=== PATIENT | female | born 1965 | race Caucasian/White ===

== ENCOUNTER 2023-05-02 06:05 | Day surgery (SDC) | payer OTHER, SELFPAY ==
[2023-05-02] VITALS (20 sets, daily range): BP systolic 130–166; BP diastolic 54–97; PULSE 63–87; RESP 12–16; TEMP 35.8–36.7; O2SAT 93–99; BMI 38.2
[2023-05-02] MEDS: LACTATED RINGERS 1000 ML 1,000 ML 100 ML IV ×2 (06:20→10:10)
--- NOTE | 2023-05-02 07:12 | P.ORPRC_ITS ---
Procedure Note Date of procedure: 05/02/23 Procedure: PREOPERATIVE DIAGNOSES: 1. Right shoulder rotator cuff tear. 2. Right long head biceps tendinosis 3. Right shoulder subacromial impingement syndrome. POSTOPERATIVE DIAGNOSES: 1. Right shoulder rotator cuff tear - supraspinatus 2. Partial-thickness tearing right long head biceps tendon 3. Right shoulder subacromial impingement syndrome. NAME OF OPERATION: 1. Right shoulder arthroscopic rotator cuff repair. 2. Right shoulder arthroscopic biceps tenodesis. 3. Right shoulder arthroscopic limited debridement. 4. Right shoulder shoulder arthroscopic bursectomy, subacromial decompression/partial acromioplasty. SURGEON: Igor Abbasi MD CLINICAL EDUCATION CONSULTANT: Arsh Funes. An marketing communications assistant was critical for this case to aide in patient positioning, suture manipulation, arm positioning, instrument positioning, and closure. ANESTHESIA: General plus preoperative supraclavicular block. IMPLANTS: Arthrex 4.75 mm knotless BioComposite Loop 'N' Tack tenodesis implant; Arthrex knotless 2.6 mm FiberTak anchors x2; Arthrex 4.75 mm BioComposite SwiveLock anchor COMPLICATIONS: None ESTIMATED BLOOD LOSS: 5 mL INDICATIONS: The patient is a pleasant, 58-year-old female who has experienced right shoulder pain that has been increasing in recent time. Physical exam and imaging were consistent with a rotator cuff tear and biceps tendinosis. Given these findings, and failure to improve with nonoperative management, recommendation was made for surgery. FINDINGS: Exam under anesthesia revealed stable shoulder with full range of motion. The diagnostic arthroscopy revealed grade 2 and grade 3 chondral changes of the glenoid with normal-appearing cartilage of the humeral head. There was significant partial-thickness tearing of the intra-articular portion of the long head of the biceps tendon. There was fraying of the superior labrum consistent with type 1 slap tear. There was partial-thickness articular sided tear of the anterior supraspinatus which involved 90% of the tendon thickness and measured approximately 1.5 cm in the anterior to posterior direction. The subscapularis tendon and infraspinatus tendons were intact. There was diffuse bursitis of the subacromial space with a downsloping acromion. No loose bodies were identified within the pouch or subscapularis recess. PROCEDURE: Following a thorough discussion of risks, benefits, and alternatives, consent was obtained and the operative shoulder was marked. A supraclavicular nerve block was performed by anesthesia staff in preop holding. The patient was brought to the operating room and placed supine on the operating table. Induction of anesthesia was completed, and patient was given IV Ancef preoperatively for prophylaxis. Patient was placed into the beach chair position. Head was placed in padded head tennis coach in neutral alignment, and all bony prominences were well padded. The operative shoulder and upper extremity were prepped and draped in the appropriate sterile fashion using ChloraPrep. A surgical time-out was performed confirming patient identity, surgical site, and procedure. The glenohumeral joint was injected with 40 mL of normal saline using and 18g spinal needle from a posterior approach. Anterior, posterior, lateral, and anterior superolateral portal sites were injected with 1% lidocaine with epinephrine. Posterior portal was established. Anterior portal was established after localization with a spinal needle and a 7.0 mm cannula was placed here. Diagnostic arthroscopy was then performed with findings as noted above. Attention was 1st directed to treatment of the biceps tendon tear. Shaver was utilized to debride frayed portions of the long head of the biceps tendon. After removing the frayed tissue remnant intra-articular biceps tendon had multiple longitudinal tears and decision was made to proceed with biceps tenodesis. Using the Gonzalez it suture Passer, FiberLink was passed around and through the intra-articular portion of the biceps tendon. Biceps tenotomy was then performed at its insertion to the superior labrum. To obtain better angle for placement of the SwiveLock anchor, a anterior superior lateral portal was established in the 7.0 cannula was placed here. Biceps tenodesis was then completed by securing a 4.75 mm BioComposite SwiveLock anchor at the top of the bicipital groove superior to the subscapularis insertion. Remnant suture was cut and removed. Attention was then directed the superior labrum. There was fraying consistent with type 1 slap tear. This frayed tissue was debrided using the motorized shaver. After debridement the labrum was probed and confirmed to be stable. Anterior posterior labrum were intact. The tear of the anterior supraspinatus was identified and frayed cuff tissue located this position was also debrided. The camera was then moved into the subacromial space. A lateral portal was established after localization of spinal needle. Subacromial bursectomy was performed using combination of motorized shaver and electrocautery. The undersurface acromion was cleared of soft tissue and subacromial decompression acromioplasty were performed using the bone-cutting shaver. This was 1st done with the bone cutter placed laterally was completed with a bone cutter placed posteriorly using the bone block cutting technique. Site was identified from the bursal side and was completed using the shaver. After releasing the small remnant attachment at the tear site, the tear measured approximately 1.5 cm anterior-posterior direction. A posterior superior lateral portal was then established to allow for better visualization of this anterior supraspinatus tear. Passport cannulas placed into the lateral portal. Footprint of the supraspinatus was then debrided of soft tissue and lightly decorticated using the bone-cutting shaver. Small stab incision was then placed lateral to the acromion to allow for placement of the anchors. A 2.65 mm knotless FiberTak anchor was placed into the anterior medial aspect of the exposed footprint. A 2nd knotless 2.6 mm FiberTak anchor was placed in the posterior medial aspect of the exposed footprint. A FiberLink suture was then used to pass each set of sutures through the cuff lateral to the musculotendinous junction. Medial row fixation was then performed using the knotless sutures. The lateral row repair was then performed by bringing both sets of FiberTape sutures into 1 4.75 mm SwiveLock anchor which was placed lateral to the footprint at the tear site. Sutures were tensioned and the SwiveLock was secured into position. The cuff was visualized and noted to be securely attached to its footprint site in anatomic position. The cuff was then probed and found to be stable. Remnant sutures were then cut and removed. Arthroscopic instruments and cannulas were removed. Excess fluid was drained from the subacromial space. Portal sites were then closed with 3-0 nylon simple interrupted sutures, and sterile dressings were applied. The patient was then rotated back into the supine position. She has woken from anesthesia and transferred to the PACU in stable condition. PLAN: 1. Discharged to home day of surgery. 2. Ice for pain and swelling. 3. Tylenol and oxycodone as needed for pain control. 4. Abduction sling at all times except for ROM and showering. -Remove sling several times daily for pendulum exercises, finger, wrist, and elbow range of motion. 5. Follow-up in orthopedic clinic in 10-14 days for wound check and suture removal. 6. Will initiate formal physical therapy 2 weeks postoperatively per the standard rotator cuff repair protocol.
--- NOTE | 2023-05-02 07:12 | W.PM.H&PU ---
History & Physical Update History & Physical Update H&P Reviewed and patient assessed: No changes noted
[2023-05-02] MEDS: fentaNYL 100 MCG/2 ML inj IVP (07:20)
[2023-05-02] MEDS: MIDAZOLAM HCL 1 MG/ML inj IVP (07:20)
[2023-05-02] MEDS: SODIUM CHLORIDE 0.9 % (FLUSH) 10 ML SYRINGE IVF (07:29)
--- NOTE | 2023-05-02 07:33 | SUR.PREOP ---
TIME?OUT:?0719 PT/RN/MDA?VERIFICATION?OF?SURGICAL?SITE,?PROCEDURE,?AND?CONSENT OBTAINED?PRIOR?TO?INVASIVE?PROCEDURE.
[2023-05-02] MEDS: CEFAZOLIN 2 GM INJ IVP (07:50)
[2023-05-02] MEDS: EPINEPHrine 1 MG in SODIUM CHLORIDE IRRIG SOLUTION 3,000 ML 9003 MG IRRIGATION ×8 (10:30)
--- NOTE | 2023-05-02 10:51 | W.ANESCHARGE ---
Anesthesia Charges Start Date/Time Anesthesia Start Date: 05/02/23 Anesthesia Start Time: 07:32 Stop Date/Time Anesthesia Stop Date: 05/02/23 Anesthesia Stop Time: 10:42
--- NOTE | 2023-05-02 10:51 | W.PM.NB ---
Nerve Block Nerve Block Time Seen by Provider: 07:25 Date Seen: 05/02/23 Type of block requested by surgeon for post-operative analgesia: supraclavicular Side: right Time out performed: Yes Verification of patient name: Yes Verification of date of : Yes Site marking: site marked Name of person performing procedure: Unruly Continuous monitoring Was continuous monitoring of O2 sat, B/P, program director/music director, recorded every 15 minutes?: Yes Procedure Checklist: sterile prep, needles and gloves Ultrasound guided. Images saved: Yes Medications given in 5ml increments after negative aspiration: Ropivicaine %: 0.5 mL: 20 Needle gauge: 22 Decadron (mg): 10 Precedex (mcg): 25 Patient tolerated procedure well: Yes Block Charges Block Charge (with Pro Fee): Brachial Plexus Use of Ultrasound Machine for Block: Yes- US Guidance/pain block
--- NOTE | 2023-05-02 10:54 | W.ANESCHARGE ---
Anesthesia Charges Start Date/Time Anesthesia Start Date: 05/02/23 Anesthesia Start Time: 07:32 Stop Date/Time Anesthesia Stop Date: 05/02/23 Anesthesia Stop Time: 10:42
[2023-05-02] MEDS: MEPERIDINE 25 MG/ML INJ 12.5 MG IVP (11:00)
[2023-05-02] MEDS: ONDANSETRON 2 MG/ML inj 4 MG IVP (12:48)
== END 2023-05-02 13:57 | disposition home or self-care (01) ==
PROVIDERS: Visit Provider Orthopaedic Surgery
PROC: (CPT 29805; principal; 2023-05-02 07:30)
DX: M75.101 Unspecified rotator cuff tear or rupture of right shoulder, not specified as traumatic (principal); M75.21 Bicipital tendinitis, right shoulder; M75.41 Impingement syndrome of right shoulder; G89.18 Other acute postprocedural pain; E11.9 Type 2 diabetes mellitus without complications; G47.30 Sleep apnea, unspecified
CPT/HCPCS: 29827; 29828; 29826; 29822; 01630; 64415; 76942; 82962; C1713; J0171; J0330; J0690; J1100; J1170; J2175; J2250; J2405; J2704; J2795; J3010; J7120; L3670

== ENCOUNTER 2023-08-13 14:45 | Outpatient (RCR) | payer OTHER, SELFPAY | END 2023-09-19 14:32 | disposition home or self-care (01) | PROVIDERS: Visit Provider Orthopaedic Surgery | DX: M75.121 Complete rotator cuff tear or rupture of right shoulder, not specified as traumatic (principal); S46.219A Strain of muscle, fascia and tendon of other parts of biceps, unspecified arm, initial encounter; Z51.89 Encounter for other specified aftercare; T14.8XXA Other injury of unspecified body region, initial encounter | CPT/HCPCS: 97110; 97140; 97162 ==

== ENCOUNTER 2024-01-22 15:12 | Outpatient (CLI) | payer OTHER, SELFPAY ==
--- NOTE | 2024-01-22 15:30 | MR_ITS ---
[address] [address] Phone:?[phone] Fax:?[phone] Referring Physician Information: Hayley Adams [address] [facility] [address] Phone:?[phone] Fax:?[phone] Patient:Shivani Pierre D.O.B:?1965 Sex:?Female Phone:?[phone] [facility] MRN:?[id number] Exam Date:?01/22/2024 EXAM: MRI of the LEFT KNEE, without contrast CLINICAL HISTORY: Ongoing left knee pain. Evaluate for medial meniscal root tear. COMPARISONS: Plain radiographs 01/19/2024. TECHNICAL: MR sequences of the left knee: sagittals: PD, PDFS coronals: PD, STIR axials: PD, T2 FS CONTRAST: None SEDATION: None FINDINGS: Bones: No fracture or destructive osseous lesion is seen. 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 Retinacula: The medial and lateral retinacula are intact. Fat pads: The infrapatellar, quadriceps, and prefemoral fat pads are unremarkable. Knee joint: Effusion: Small left knee joint effusion. Popliteal cyst: None. Intra-articular bodies: None. Posteromedial corner: The semimembranosus and pes anserine tendons are intact. Medial compartment: Medial meniscus: There is ill-defined tear of the posterior root insertion of the medial meniscus with minimal adjacent tibial bone marrow edema best seen on sagittal series 6 images 14 and 15. There is approximately 2 mm of medial meniscal extrusion best seen on coronal series 7 image 18. Cartilage: Grade II chondral thinning is suspected over the weight-bearing portion of the medial femoral condyle although it must be noted that smooth chondral thinning is not well evaluated by MRI. A small focus of subchondral cystic change within the anterior and peripheral portion of the medial tibial plateau likely reflects overlying chondral fissuring. Lateral compartment: Lateral meniscus: Intact. Cartilage: Intact. Ligaments: Anterior cruciate ligament: Intact. Posterior cruciate ligament: Intact. Medial collateral ligament: Intact. Posterior oblique ligament: Intact. Fibular collateral ligament: Intact. Posterolateral corner: The distal biceps femoris tendon, iliotibial band, popliteus tendon, popliteus muscle, popliteofibular ligament, and arcuate ligament are intact. Extensor mechanism: Patellar tendon: Intact. Quadriceps tendon: Intact. IMPRESSION: 1. Ill-defined tear of the posterior root insertion of the medial meniscus with minimal adjacent tibial bone marrow edema. Approximately 2 mm of medial meniscal extrusion. 2. Grade II chondral thinning is suspected over the weight-bearing portion of the medial femoral condyle although it must be noted that smooth chondral thinning is not well evaluated by MRI. A small focus of subchondral cystic change within the anterior and peripheral portion of the medial tibial plateau likely reflects overlying chondral fissuring. 3. 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 4. Small left knee joint effusion. 5. No ligamentous or lateral meniscal pathology of the left knee. RCB Electronically signed on 01/23/2024 10:41:00 AM by Johny Mcrae M.D.
== END 2024-01-22 15:13 | disposition home or self-care (01) ==
LOC: MRI 15:13
PROVIDERS: PCP Physician Assistant; Visit Provider Physician Assistant
DX: M25.562 Pain in left knee (principal); S83.242A Other tear of medial meniscus, current injury, left knee, initial encounter; M22.42 Chondromalacia patellae, left knee; M25.462 Effusion, left knee; M22.2X2 Patellofemoral disorders, left knee
CPT/HCPCS: 73721